=== PATIENT | female | born 1985 | race Caucasian/White ===

== ENCOUNTER 2017-09-23 10:46 | Emergency (ER) | payer OTHER ==
[~2017-09-23] VITALS: Ht 162.6 cm; Wt 80.0 kg
[2017-09-23 11:34] LABS: INFLUENZA A NONE DETECTED (NONE DETECT); INFLUENZA B NONE DETECTED (NONE DETECT)
[2017-09-23] MEDS ORDERED: ZITHROMAX250 MG PO (11:42)
[2017-09-23 11:59] VITALS: BP 128/70
== END 2017-09-23 11:59 | disposition home or self-care (01) | DRG 153 ==
LOC: ED 10:46
PROVIDERS: Emergency Medicine
DX: J06.9 Acute upper respiratory infection, unspecified (principal); F17.210 Nicotine dependence, cigarettes, uncomplicated; R09.81 Nasal congestion; R09.89 Other specified symptoms and signs involving the circulatory and respiratory systems

== ENCOUNTER 2018-05-14 18:52 | Emergency (ER) | payer SELFPAY ==
[~2018-05-14] VITALS: Ht 162.6 cm; Wt 82.0 kg
[~2018-05-14 18:52] MED LIST: ZITHROMAX250 MG PO
[2018-05-14] MEDS ORDERED: ORPHENADRINE C100 M1 PO (21:29)
[2018-05-14] MEDS ORDERED: IBUPROFEN600 MG PO (21:29)
[2018-05-14 21:43] VITALS: BP 135/88
== END 2018-05-14 21:43 | disposition home or self-care (01) | DRG 552 ==
LOC: ED 18:52
DX: M51.37 Other intervertebral disc degeneration, lumbosacral region (principal); N83.202 Unspecified ovarian cyst, left side

== ENCOUNTER 2020-06-04 16:47 | Emergency (ER) | payer SELFPAY ==
[~2020-06-04] VITALS: Ht 162.6 cm; Wt 100.0 kg
[~2020-06-04 16:47] MED LIST changes: +IBUPROFEN600 MG PO; +ORPHENADRINE C100 M1 PO
[2020-06-04 19:03] LABS: URINE BILIRUBIN - DIPSTICK NEGATIVE (NEGATIVE); URINE BLOOD DIPSTICK NEGATIVE (NEGATIVE); URINE COLOR YELLOW; URINE GLUCOSE - DIPSTICK NEGATIVE (NEGATIVE); URINE KETONE NEGATIVE (NEGATIVE); URINE LEUK ESTERASE NEGATIVE (NEGATIVE); URINE NITRITE - DIPSTICK NEGATIVE (Negative); URINE PH 6.5 (4.5-8.0); URINE PROTEIN - DIPSTICK NEGATIVE (NEG-TRACE); URINE SPECIFIC GRAVITY 1.015; URINE UROBILINOGEN - DIPSTICK 0.2 E.U./dL (0.2)
[2020-06-04 19:37] VITALS: BP 119/69
== END 2020-06-04 19:37 | disposition home or self-care (01) | DRG 833 ==
LOC: ED 16:47
PROVIDERS: Emergency Medicine
DX: O26.899 Other specified pregnancy related conditions, unspecified trimester (principal); M54.2 Cervicalgia; O99.330 Smoking (tobacco) complicating pregnancy, unspecified trimester; F17.200 Nicotine dependence, unspecified, uncomplicated; Z3A.00 Weeks of gestation of pregnancy not specified